=== PATIENT | male | born 1955 | race Caucasian/White ===

== ENCOUNTER 2022-06-10 20:40 | Inpatient (IN) | payer BC, MEDICARE ==
[~2022-06-10] VITALS: Ht 152.4 cm; Wt 110.4 kg
[2022-06-11 03:45] LABS: HEMOGLOBIN 14.9 gm/dl (14.0-17.5); RED BLOOD COUNT 5.08 M/UL (4.20-5.50); WHITE BLOOD COUNT 19.9 K/UL (4.5-11.0)
[2022-06-11] MEDS ORDERED: MYCOSTATIN POWD15 GM TOP (09:53)
[2022-06-11] MEDS ORDERED: GLYBURIDE5 MG PO (09:53)
[2022-06-11] MEDS ORDERED: BUMETANIDE2 MG PO (09:54)
[2022-06-11] MEDS ORDERED: ISOSORBIDE DINI10 MG PO (09:54)
[2022-06-11] MEDS ORDERED: HYDRALAZINE HCL10 MG PO (09:54)
[2022-06-11] MEDS ORDERED: DIAZEPAM5 MG PO (09:54)
[2022-06-11] MEDS ORDERED: CARVEDILOL6.25 MG PO (09:54)
[2022-06-11] MEDS ORDERED: FINASTERIDE5 MG PO (09:54)
[2022-06-11] MEDS ORDERED: ZAROXOLYN/DIUL2.5 MG PO (09:55)
[2022-06-11] MEDS ORDERED: POTASSIUM CHLO20 ME2 PO (09:55)
[2022-06-11] MEDS ORDERED: LEVEMIR100 UNIT/1 SQ (09:55)
[2022-06-11] MEDS ORDERED: ELIQUIS 5 MG TAB5 MG PO (09:56)
[2022-06-11] MEDS ORDERED: NOVOLOG100 UNIT/2 INJ (09:56)
[2022-06-11] MEDS ORDERED: HYDROCODON-ACE1 EAC6 PO (09:56)
[2022-06-11] MEDS ORDERED: ONDANSETRON HCL4 MG PO (09:56)
[2022-06-11] MEDS ORDERED: FLOMAX 0.4 MG0.4 MG PO (09:57)
[2022-06-11] MEDS ORDERED: ABILIFY5 MG PO (09:57)
[2022-06-11] MEDS ORDERED: ACIPHEX20 MG PO (09:57)
[2022-06-11] MEDS ORDERED: VITAMIN C500 M4 PO (09:58)
[2022-06-11] MEDS ORDERED: MELATONIN10 M2 PO (09:58)
[2022-06-11] MEDS ORDERED: FISH OIL 1,0001 EACH PO (09:58)
[2022-06-11] MEDS ORDERED: STOOL SOFTENER100 MG PO (09:58)
[2022-06-11] MEDS ORDERED: MULTIVITAMIN1 EACH PO (09:59)
[2022-06-11] MEDS ORDERED: PROBIOTIC1 EACH PO (09:59)
[2022-06-11] MEDS ORDERED: ZYRTEC10 MG PO (09:59)
[2022-06-12 05:54] LABS: HEMOGLOBIN 13.9 gm/dl (14.0-17.5); RED BLOOD COUNT 4.81 M/UL (4.20-5.50)
[2022-06-12 06:11] LABS: WHITE BLOOD COUNT 9.4 K/UL (4.5-11.0)
--- NOTE | 2022-06-12 13:00 | NUR ---
RECEIVED A CALL FROM TELE, PT HAD A [address] BRYAN NOTIFIED. ADD MAGNESIUM LAB AND NOTIFY CARDIOLOGY. NOTIFIED DARA LATHAM SINCE CARDIOLOGY IS CONSULTED ON THE PT'S CASE. WILL MONITOR THE PT IS TRANSFERING TO PCU.
[2022-06-13 04:46] LABS: HEMOGLOBIN 13.9 gm/dl (14.0-17.5); RED BLOOD COUNT 4.79 M/UL (4.20-5.50)
[2022-06-13 04:50] LABS: WHITE BLOOD COUNT 13.5 K/UL (4.5-11.0)
[2022-06-13 15:58] LABS: BORDETELLA PARAPERTUSSIS Not Detected (Not Detectd); BORDETELLA PERTUSSIS Not Detected (Not Detectd); CHLAMYDIA PNEUMONIAE Not Detected (Not Detectd); CORONAVIRUS HKU1 Not Detected (Not Detectd); CORONAVIRUS NL63 Not Detected (Not Detectd); CORONAVIRUS OC43 Not Detected (Not Detectd); CORONOAVIRUS 229E Not Detected (Not Detectd); HUMAN METAPNEUMOVIRUS Not Detected (Not Detectd); HUMAN RHINOVIRUS/ENTEROVIRUS Not Detected (Not Detectd); INFLUENZA A Not Detected (Not Detectd); INFLUENZA B Not Detected (Not Detectd); MYCOPLASMA PNEUMONIAE Not Detected (Not Detectd); PARAINFLUENZA VIRUS 1 Not Detected (Not Detectd); PARAINFLUENZA VIRUS 2 Not Detected (Not Detectd); PARAINFLUENZA VIRUS 3 Not Detected (Not Detectd); PARAINFLUENZA VIRUS 4 Not Detected (Not Detectd); RESPIRATORY SYNCYTIAL VIRUS Not Detected (Not Detectd)
[2022-06-13 17:13] LABS: SARS-CoV-2 DETECTED (Not Detectd)
[2022-06-13 20:48] LABS: ADENOVIRUS F 40/41 Not Detected (Negative); ASTROVIRUS Not Detected (Negative); CAMPYLOBACTER Not Detected (Negative); CRYPTOSPORIDIUM Not Detected (Negative); E.COLI 0157 Not Detected (Negative); ENTAMOEBA HISTOLYTICA Not Detected (Negative); ENTEROAGGREGATIVE E.COLI (EAEC Not Detected (Negative); ENTEROPATHOGENIC E.COLI (EPEC) Not Detected (Negative); ENTEROTOXIGENIC E.COLI (ETEC) Not Detected (Negative); GIARDIA LAMBLIA Not Detected (Negative); NOROVIRUS GI/GII Not Detected (Negative); PLESIOMONAS SHIGELLOIDES Not Detected (Negative); ROTOVIRUS A Not Detected (Negative); SALMONELLA Not Detected (Negative); SAPOVIRUS Not Detected (Negative); SHIG/ENTEROINVAS.ECOLI (EIEC) Not Detected (Negative); SHIGA-LIK TOX.PRO.E.COLI (STEC Not Detected (Negative); VIBRIO Not Detected (Negative); VIBRIO CHOLERAE Not Detected (Negative); YERSINIA ENTEROCOLITICA Not Detected (Negative)
[2022-06-14 05:17] LABS: RED BLOOD COUNT 4.87 M/UL (4.20-5.50)
[2022-06-14 05:22] LABS: WHITE BLOOD COUNT 5.8 K/UL (4.5-11.0)
[2022-06-15 06:18] LABS: HEMOGLOBIN 14.2 gm/dl (14.0-17.5); RED BLOOD COUNT 4.81 M/UL (4.20-5.50); WHITE BLOOD COUNT 4.9 K/UL (4.5-11.0)
[2022-06-16 03:00] LABS: HEMOGLOBIN 13.2 gm/dl (14.0-17.5); RED BLOOD COUNT 4.59 M/UL (4.20-5.50)
[2022-06-16 03:02] LABS: WHITE BLOOD COUNT 6.5 K/UL (4.5-11.0)
[2022-06-17 03:51] LABS: HEMOGLOBIN 13.8 gm/dl (14.0-17.5); RED BLOOD COUNT 4.76 M/UL (4.20-5.50)
[2022-06-18 02:04] LABS: HEMOGLOBIN 14.5 gm/dl (14.0-17.5); RED BLOOD COUNT 4.97 M/UL (4.20-5.50); WHITE BLOOD COUNT 7.5 K/UL (4.5-11.0)
[2022-06-19 02:10] LABS: RED BLOOD COUNT 5.12 M/UL (4.20-5.50); WHITE BLOOD COUNT 6.9 K/UL (4.5-11.0)
[2022-06-20 20:38] LABS: HEMOGLOBIN 14.2 gm/dl (14.0-17.5); RED BLOOD COUNT 4.89 M/UL (4.20-5.50)
[2022-06-20 20:44] LABS: WHITE BLOOD COUNT 9.5 K/UL (4.5-11.0)
[2022-06-21 06:51] LABS: HEMOGLOBIN 15.1 gm/dl (14.0-17.5); RED BLOOD COUNT 5.16 M/UL (4.20-5.50); WHITE BLOOD COUNT 9.7 K/UL (4.5-11.0)
[2022-06-23 12:48] LABS: HEMOGLOBIN 14.9 gm/dl (14.0-17.5); RED BLOOD COUNT 5.12 M/UL (4.20-5.50)
[2022-06-24 02:34] LABS: HEMOGLOBIN 14.2 gm/dl (14.0-17.5); RED BLOOD COUNT 4.9 M/UL (4.20-5.50)
[2022-06-26 03:11] LABS: HEMOGLOBIN 14.8 gm/dl (14.0-17.5); RED BLOOD COUNT 5.1 M/UL (4.20-5.50); WHITE BLOOD COUNT 9.1 K/UL (4.5-11.0)
[2022-06-27 14:52] LABS: HEMOGLOBIN 13.9 gm/dl (14.0-17.5); RED BLOOD COUNT 4.75 M/UL (4.20-5.50); WHITE BLOOD COUNT 8.7 K/UL (4.5-11.0)
[2022-06-29 02:29] LABS: HEMOGLOBIN 14.1 gm/dl (14.0-17.5); RED BLOOD COUNT 4.89 M/UL (4.20-5.50)
[2022-06-29 02:45] LABS: WHITE BLOOD COUNT 4.8 K/UL (4.5-11.0)
[2022-07-01 07:59] LABS: HEMOGLOBIN 12.8 gm/dl (14.0-17.5); RED BLOOD COUNT 4.48 M/UL (4.20-5.50)
[2022-07-02 02:39] LABS: RED BLOOD COUNT 4.51 M/UL (4.20-5.50); WHITE BLOOD COUNT 7.4 K/UL (4.5-11.0)
[2022-07-03 01:50] LABS: HEMOGLOBIN 13.5 gm/dl (14.0-17.5); RED BLOOD COUNT 4.68 M/UL (4.20-5.50); WHITE BLOOD COUNT 8.3 K/UL (4.5-11.0)
[2022-07-04 03:07] LABS: HEMOGLOBIN 14.2 gm/dl (14.0-17.5); RED BLOOD COUNT 4.91 M/UL (4.20-5.50); WHITE BLOOD COUNT 8.6 K/UL (4.5-11.0)
[2022-07-05 02:02] LABS: HEMOGLOBIN 12.9 gm/dl (14.0-17.5); RED BLOOD COUNT 4.49 M/UL (4.20-5.50); WHITE BLOOD COUNT 6.9 K/UL (4.5-11.0)
[2022-07-06 02:23] LABS: RED BLOOD COUNT 4.48 M/UL (4.20-5.50); WHITE BLOOD COUNT 6.6 K/UL (4.5-11.0)
[2022-07-06] MEDS ORDERED: LOPRESSOR 25 MG25 MG PO (10:55)
[2022-07-06] MEDS ORDERED: LASIX40 MG PO (10:55)
[2022-07-06] MEDS ORDERED: JARDIANCE25 MG PO (10:57)
--- NOTE | 2022-07-06 14:39 | NUR ---
REPORT CALLED TO [facility] EMERGENCY DEPARTMENT INPT REHAB AT 1100 THIS MORNING PT LEFT PER EMS WITH AT BEDSIDE
== END 2022-07-06 14:15 | DRG 871 ==
LOC: PROG CARE 20:40 → MED SURG 4 06-11 01:21 → PROG CARE 06-11 01:21 → CCU 06-19 21:22 → PROG CARE 06-22 17:16
PROVIDERS: Internal Medicine; Internal Medicine Infectious Disease; Internal Medicine Nephrology; ADMIT Internal Medicine
PROC: 8E0ZXY6 Isolation (ICD-10-PCS; principal; 2022-06-11)
PROC: 3E0333Z Introduction of Anti-inflammatory into Peripheral Vein, Percutaneous Approach (ICD-10-PCS; 2022-06-11)
PROC: B24BZZZ Ultrasonography of Heart with Aorta (ICD-10-PCS; 2022-06-12)
PROC: 5A09357 Assistance with Respiratory Ventilation, Less than 24 Consecutive Hours, Continuous Positive Airway Pressure (ICD-10-PCS; 2022-06-12)
PROC: 5A09357 Assistance with Respiratory Ventilation, Less than 24 Consecutive Hours, Continuous Positive Airway Pressure (ICD-10-PCS; 2022-06-15)
PROC: 5A09357 Assistance with Respiratory Ventilation, Less than 24 Consecutive Hours, Continuous Positive Airway Pressure (ICD-10-PCS; 2022-06-16)
PROC: 5A09357 Assistance with Respiratory Ventilation, Less than 24 Consecutive Hours, Continuous Positive Airway Pressure (ICD-10-PCS; 2022-06-17)
PROC: 5A09357 Assistance with Respiratory Ventilation, Less than 24 Consecutive Hours, Continuous Positive Airway Pressure (ICD-10-PCS; 2022-06-19)
PROC: 5A09357 Assistance with Respiratory Ventilation, Less than 24 Consecutive Hours, Continuous Positive Airway Pressure (ICD-10-PCS; 2022-06-20)
PROC: 5A09357 Assistance with Respiratory Ventilation, Less than 24 Consecutive Hours, Continuous Positive Airway Pressure (ICD-10-PCS; 2022-06-21)
PROC: 5A09357 Assistance with Respiratory Ventilation, Less than 24 Consecutive Hours, Continuous Positive Airway Pressure (ICD-10-PCS; 2022-06-22)
PROC: 4A10X4Z Monitoring of Central Nervous Electrical Activity, External Approach (ICD-10-PCS; 2022-06-23)
PROC: 5A09357 Assistance with Respiratory Ventilation, Less than 24 Consecutive Hours, Continuous Positive Airway Pressure (ICD-10-PCS; 2022-06-26)
PROC: 5A09357 Assistance with Respiratory Ventilation, Less than 24 Consecutive Hours, Continuous Positive Airway Pressure (ICD-10-PCS; 2022-06-27)
PROC: 5A09357 Assistance with Respiratory Ventilation, Less than 24 Consecutive Hours, Continuous Positive Airway Pressure (ICD-10-PCS; 2022-06-27)
PROC: 5A09357 Assistance with Respiratory Ventilation, Less than 24 Consecutive Hours, Continuous Positive Airway Pressure (ICD-10-PCS; 2022-07-01)
PROC: 5A09357 Assistance with Respiratory Ventilation, Less than 24 Consecutive Hours, Continuous Positive Airway Pressure (ICD-10-PCS; 2022-07-01)
PROC: 5A09357 Assistance with Respiratory Ventilation, Less than 24 Consecutive Hours, Continuous Positive Airway Pressure (ICD-10-PCS; 2022-07-04)
DX: A41.89 Other specified sepsis (principal); G93.41 Metabolic encephalopathy; I50.23 Acute on chronic systolic (congestive) heart failure; U07.1 COVID-19; J12.82 Pneumonia due to coronavirus disease 2019; J96.21 Acute and chronic respiratory failure with hypoxia; J69.0 Pneumonitis due to inhalation of food and vomit; J15.9 Unspecified bacterial pneumonia; N18.4 Chronic kidney disease, stage 4 (severe); N17.9 Acute kidney failure, unspecified; I13.0 Hypertensive heart and chronic kidney disease with heart failure and stage 1 through stage 4 chronic kidney disease, or unspecified chronic kidney disease; I48.20 Chronic atrial fibrillation, unspecified; E87.3 Alkalosis; A04.72 Enterocolitis due to Clostridium difficile, not specified as recurrent; L03.113 Cellulitis of right upper limb; Z66 Do not resuscitate; E11.22 Type 2 diabetes mellitus with diabetic chronic kidney disease; E87.6 Hypokalemia; I48.0 Paroxysmal atrial fibrillation; F41.9 Anxiety disorder, unspecified; G89.29 Other chronic pain; M54.9 Dorsalgia, unspecified; Z96.698 Presence of other orthopedic joint implants; L89.322 Pressure ulcer of left buttock, stage 2; L89.312 Pressure ulcer of right buttock, stage 2; R65.20 Severe sepsis without septic shock; L89.156 Pressure-induced deep tissue damage of sacral region; E66.9 Obesity, unspecified; F31.9 Bipolar disorder, unspecified; I08.1 Rheumatic disorders of both mitral and tricuspid valves; G47.33 Obstructive sleep apnea (adult) (pediatric); E11.65 Type 2 diabetes mellitus with hyperglycemia; L30.3 Infective dermatitis; R13.10 Dysphagia, unspecified; I25.5 Ischemic cardiomyopathy; N40.0 Benign prostatic hyperplasia without lower urinary tract symptoms; R53.81 Other malaise; R50.2 Drug induced fever; M10.9 Gout, unspecified; T36.1X5A Adverse effect of cephalosporins and other beta-lactam antibiotics, initial encounter; I49.5 Sick sinus syndrome; Z95.810 Presence of automatic (implantable) cardiac defibrillator; Z79.01 Long term (current) use of anticoagulants; Z95.2 Presence of prosthetic heart valve; Z79.4 Long term (current) use of insulin; Z91.19 Patient's noncompliance with other medical treatment and regimen; Z99.81 Dependence on supplemental oxygen; Z90.49 Acquired absence of other specified parts of digestive tract; Z98.890 Other specified postprocedural states; Z88.8 Allergy status to other drugs, medicaments and biological substances; Z88.6 Allergy status to analgesic agent; Z68.34 Body mass index [BMI] 34.0-34.9, adult
CPT/HCPCS: ECHO; 36415; 36600; 70450; 71045; 74230; 80048; 80053; 80202; 81001; 82140; 82550; 82553; 82570; 82803; 82962; 83036; 83605; 83735; 83880; 84100; 84132; 84156; 84439; 84443; 84550; 85025; 85027; 85610; 85730; 86140; 87040; 87081; 87086; 87324; 87449; 87507; 87633; 92526; 92610; 92611-GN; 93005; 93306; 94640; 94660; 94664; 94760; 95816; 97110; 97110-GP-CQ; 97162; 97164; 97166; 97168; 97530; 97530-GP-CQ; A6212; C9113; J1100; J1644; J1940; J2020; J2060; J2185; J2310; J2405; J3370; J3411; J3475; J3480; J7030; J7070; P9047; U0002